=== PATIENT | male | born 1950 | race Caucasian/White ===

== ENCOUNTER → 2019-08-07 07:08 | Outpatient (CLI) | payer MEDICARE, SELFPAY ==
--- NOTE | ~2019-08-07 | MR_ITS ---
EXAMINATION: MR lumbar spine wo con DATE: 08/07/2019 07:50 INDICATION: Low back pain. TECHNIQUE: Magnetic resonance imaging (MRI) of the lumbar spine was performed without intravenous con trast. Sequences included sagittal T2-weighted FSE, sagittal T2-weighted FS FSE, sagittal T1-weighted FSE, and axial T2-weighted FSE. COMPARISON: Lumbar spine MRI 02/03/2016 FINDINGS: There is 5 degrees levocurvature of lumbar spine. There are chronic bilateral L5 pars defec ts. There is 12 mm anterolisthesis of L5 on S1. There is severely decreased disc height at L5-S1. The re is chronic 1/5 height loss of L5 inferior endplate and S1 superior endplate. There is moderately d ecreased disc height at T10-T11. The following disc levels are specifically discussed: T10-T11: There is a central extrusion. There is no facet joint osteoarthritis. There is mild bilatera l neural foraminal stenosis. There is moderate central canal stenosis with ventral indentation of the spinal cord. L1-L2: The disc does not extend beyond the endplate margin. There is mild bilateral facet joint osteo arthritis. There is no neural foraminal stenosis. There is no central canal stenosis. L2-L3: The disc does not extend beyond the endplate margin. There is mild bilateral facet joint osteo arthritis. There is no neural foraminal stenosis. There is no central canal stenosis. L3-L4: The disc is mildly bulging. There is moderate right and mild left facet joint osteoarthritis. There is mild bilateral neural foraminal stenosis. There is no central canal stenosis. L4-L5: The disc does not extend beyond the endplate margin. There is mild bilateral facet joint osteo arthritis. There is no neural foraminal stenosis. There is no central canal stenosis. L5-S1: The disc does not extend beyond the endplate margin. There is moderate bilateral facet joint o steoarthritis. There is moderate bilateral neural foraminal stenosis. There is no central canal steno sis. IMPRESSION: 1. Severe lower lumbar spondylosis and moderate lower thoracic spondylosis, stable from 02/03/2016. 2. Chronic bilateral L5 pars defects with stable grade 2 anterolisthesis of L5 on S1. Reviewed, dictated and finalized at location A. LESS STORE MANAGER IMPRESSION: 1. Severe lower lumbar spondylosis and moderate lower thoracic spondylosis, sta ble from 02/03/2016. 2. Chronic bilateral L5 pars defects with stable grade 2 anterolisthesis of L5 on S1.
== END ==
PROVIDERS: Visit Provider Anesthesiology Pain Medicine
DX: M47.896 Other spondylosis, lumbar region (principal)
CPT/HCPCS: 72148

== ENCOUNTER 2020-06-04 06:53 | Outpatient (NON) | payer MEDICARE, SELFPAY ==
[2020-06-05 13:43] LABS: SARS-CoV-2 RNA PCR Negative
== END 2020-06-04 06:54 ==
PROVIDERS: PCP Family Medicine; Visit Provider Physician Assistant Medical
DX: Z20.828 Contact with and (suspected) exposure to other viral communicable diseases (principal); R09.89 Other specified symptoms and signs involving the circulatory and respiratory systems
CPT/HCPCS: 87635; C9803; U0003

== ENCOUNTER 2020-09-17 10:03 | Outpatient (CLI) | payer MEDICARE, SELFPAY ==
--- NOTE | ~2020-09-17 | NM_ITS ---
EXAMINATION: NM petra stress w perfusion DATE: 09/17/2020 12:04 INDICATION: Chest pain. TECHNIQUE: Rest images were obtained following intravenous administration of 9.6 mCi Tc99m tetrofosmi n (Myoview). The patient was infused intravenously with Lexiscan (regadenoson). Then, 30.5 mCi Tc99m tetrofosmin (Myoview) was administered intravenously, and stress images were obtained. Data was recon structed into short axis and horizontal and vertical long axis SPECT images. Gated SPECT images were also obtained. COMPARISON: Myocardial perfusion imaging 08/21/2016 FINDINGS: There is no definite reversible or fixed perfusion abnormality to suggest ischemia or infar ction. There is no segmental wall motion abnormality. Left ventricular ejection fraction measures 6 9%. IMPRESSION: 1. No definite ischemia or infarct. 2. Normal left ventricular ejection fraction measuring 69%. Reviewed, dictated and finalized at location A. [employer]TY FORE[employer]OD
--- NOTE | 2020-09-17 10:18 | EST_ITS ---
Patient Info Name: Byron Desai Age: 70 years : 1950 Gender: Male Ht: 68 in Wt: 326 lbs BSA: 2.75 m2 Exam Date: 09/17/2020 11:10 AM Exam Location: [facility] Stress Patient Status: Outpatient Admit Date: 09/17/2020 Staff Ordering Physician: Elvira Montoya Attending Provider: Elvira Montoya Exercise Technologist: Dory Goodwin RDCS Exercise Physician: Ubaldo Noel DO Exam Type: CA stress petra w NM Study Info A regadenoson stress test was performed. Summary 1. 1. Negative lexiscan stress test for ischemic ST changes by ECG criteria. 2. 2. Stable hemodynamics throughout the test. 3. 3. Nuclear scan to follow and will be reported separately. Please correlate with it. 4. 4. Patient informed of the above results. Protocol: Lexiscan Stress ECG Details Stage: REST Duration (min): 5 min : 8 sec HR (bpm): 76 SBP (mmHg): 116 DBP (mmHg): 83 Stage: REST Duration (min): 8 min : 33 sec HR (bpm): 77 SBP (mmHg): 116 DBP (mmHg): 83 Stage: STAGE 1 Duration (min): 0 min : 59 sec HR (bpm): 77 SBP (mmHg): 136 DBP (mmHg): 83 Stage: RECOVERY Duration (min): 1 min : 0 sec HR (bpm): 93 SBP (mmHg): 100 DBP (mmHg): 70 Stage: RECOVERY Duration (min): 2 min : 0 sec HR (bpm): 90 SBP (mmHg): 100 DBP (mmHg): 70 Stage: RECOVERY Duration (min): 3 min : 0 sec HR (bpm): 86 SBP (mmHg): 109 DBP (mmHg): 74 Stage: RECOVERY Duration (min): 4 min : 0 sec HR (bpm): 93 SBP (mmHg): 109 DBP (mmHg): 74 Stage: RECOVERY Duration (min): 5 min : 0 sec HR (bpm): 91 SBP (mmHg): 112 DBP (mmHg): 74 Stage: RECOVERY Duration (min): 6 min : 0 sec HR (bpm): 91 SBP (mmHg): 112 DBP (mmHg): 74 Stage: RECOVERY Duration (min): 7 min : 0 sec HR (bpm): 89 SBP (mmHg): 113 DBP (mmHg): 78 Stage: RECOVERY Duration (min): 8 min : 0 sec HR (bpm): 87 SBP (mmHg): 113 DBP (mmHg): 78 Stage: RECOVERY Duration (min): 8 min : 43 sec HR (bpm): 87 SBP (mmHg): 129 DBP (mmHg): 81 Rest HR: 77 bpm Peak HR: 94 bpm Rest Sys BP: 116 mmHg Peak Sys BP: 136 mmHg Max Pred HR: 151 bpm % Max Pred HR: 62 % Target HR: 128 bpm Max RPP: 12,784 bpm*mmHg Termination Reason: Completed protocol Cardiac Symptoms: Shortness of breath Total Time: 1 min : 0 sec Rest Pate BP: 83 mmHg Peak Pate BP: 83 mmHg Total Dose: 0.4 mg Resting ECG Sinus rhythm. Stress ECG No ST changes. Arrhythmias None. Report Signatures
== END 2020-09-17 10:04 | disposition home or self-care (01) ==
PROVIDERS: PCP Family Medicine; Visit Provider Nurse Practitioner Family
DX: E66.01 Morbid (severe) obesity due to excess calories (principal); R07.89 Other chest pain; I10 Essential (primary) hypertension
CPT/HCPCS: 78452; 93017; A9502; J2785

== ENCOUNTER → 2021-01-26 17:32 | Outpatient (CLI) | payer MEDICARE, SELFPAY ==
--- NOTE | ~2021-01-26 | XR_ITS ---
EXAMINATION: XR knee LT 3V EXAM DATE: 01/26/2021 18:50 INDICATION: M25.562 - Pain in left knee TECHNIQUE: Three projections of the left knee. Frontal and lateral projections were obtained standing . Comparison is made to prior examination from 02/17/2018. FINDINGS: No evidence osteochondral defect or joint body in the left knee joint. There is moderate to severe primary osteoarthritis of the medial tibiofemoral compartment, mild to moderate the patell ofemoral compartment. No joint effusion. There are no acute fractures identified. The soft tissue is unremarkable. Compared to 2018, significant progression in arthritis. IMPRESSION: Moderate to severe left medial tibiofemoral compartment osteoarthritis. Reviewed, dictated and finalized at location G. IMPRESSION: Moderate to severe left medial tibiofemoral compartment osteoarthri tis.
== END ==
PROVIDERS: PCP Family Medicine; Visit Provider Nurse Practitioner Family
DX: M17.12 Unilateral primary osteoarthritis, left knee (principal)
CPT/HCPCS: 73562

== ENCOUNTER 2022-05-23 00:16 | Day surgery (SDC) | payer MEDICARE, SELFPAY ==
[2022-05-12 14:32] VITALS: BMI 43.4
[2022-05-23 06:43] VITALS: BP 135/85; PULSE 69; RESP 18; TEMP 35.5; O2SAT 97
[2022-05-23] MEDS: LACTATED RINGERS 1,000 ML 150 ML IV CONT (06:47)
--- NOTE | 2022-05-23 07:33 | WPDANESEPPF ---
Anes - Initial Pre Proc Eval Procedure: Operation Date: 05/23/22 08:00 Proposed Procedures p Screening Colonoscopy - Miguel Caraballo MD Date/Time: 05/23/22 07:33 Surgeon: Miguel Caraballo MD Pre Op Diagnosis: neoplasm screening Patient Data Age: 72 Gender: M Height: 1.73 m Weight: 125.8 kg Last Vital Signs Temp 95.9 F L 05/23/22 06:43 Pulse 69 05/23/22 06:43 Resp 18 05/23/22 06:43 BP 135/85 05/23/22 06:43 Pulse Ox 97 05/23/22 06:43 O2 Del Method Room Air 05/23/22 06:43 Allergies Allergy/AdvReac Type Severity Reaction Status Date / Time No Known Allergies Allergy Verified 05/23/22 06:42 Home Medications Medication Instructions Recorded Confirmed Type meloxicam 15 mg tablet 15 mg PO DAILY #90 tabs 03/10/22 05/23/22 Rx alprazolam 0.5 mg tablet 0.5 mg PO TID PRN anxiety 05/12/22 05/23/22 History escitalopram oxalate 20 mg tablet 20 mg PO DAILY 05/12/22 05/23/22 History levothyroxine 88 mcg tablet 88 mcg PO DAILY 05/12/22 05/23/22 History rosuvastatin 10 mg tablet 10 mg PO DAILY 05/12/22 05/23/22 History silver sulfadiazine 1 % topical 1 applic topical DAILY #20 grams 05/17/22 05/23/22 Rx cream (Silvadene) Patient hx anesthesia problems: none Family hx anesthesia problems: none Results Review: All pre-operative results and documents have been reviewed as part of the pre-operative evaluation. [facility] Past Medical History Medical History Anxiety disorder, unspecified Bilateral primary osteoarthritis of knee BMI 40.0-44.9, adult BMI 45.0-49.9, adult Bronchitis Diabetes Essential (primary) hypertension Hamstring tightness Hypothyroidism Lumbar disc disease with radiculopathy Mixed hyperlipidemia Moderate major depression Morbid obesity Neuropathy VIKI (obstructive sleep apnea) Skin tags, multiple acquired Spondylolysis, lumbar region Testicular hypofunction Type 2 diabetes mellitus without complication, without long-term current use of insulin Family History Family History Father Mother Other Diabetes mellitus Family history of cardiovascular disease Social History Social History Smoking status: Never smoker Second hand tobacco smoke exposure: No Alcohol intake: never Substance use: never Substance use type: does not use Living arrangements: with family 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 Gender identity (if verbalized by the patient): Male Sexual Orientation (if Verbalized by the Patient): Straight or Heterosexual Spiritual care concerns: No Agree to blood products: Yes Anes - Eval Final PreProcedure Day of Procedure 05/23/22 07:33 Patient weight: morbidly obese Heart: regular rate and rhythm Lungs: clear to auscultation Airway: Mallampati scale class II Neurological: alert and oriented Last oral intake: >/= 8 hours ASA classification: III Emergent: no Anesthetic plan: proceed Anesthesia type and monitoring: general GIVS and standard monitoring Results Review: All pre-operative results and documents have been reviewed as part of the pre-operative evaluation. Informed Consent: The patient's anesthetic plan and its attendant risks and benefits were discussed with the patient/family/POA. Questions were solicited and answers provided to the satisfaction of the patient/family/POA.
--- NOTE | 2022-05-23 07:47 | PM.HPGS ---
History of Present Illness History of Present Illness Consent: Risks, benefits, and alternatives have been discussed and questions answered. Patient agrees to proceed with procedure. Chief complaint: neoplasm screening Narrative: Byron Desai is a 72 year old male here for screening colonoscopy, last one 10 years ago Review of Systems Constitutional: Constitutional: Denies headache(s) and Denies weakness Eyes: Eyes: Denies blurry vision ENT: Reports Normal hearing present, Denies headache(s) and Denies neck pain Cardiovascular: Cardiovascular: Denies chest pain and Denies dyspnea Respiratory: Respiratory: Denies dyspnea Gastrointestinal: Gastrointestinal: Reports no additional gastrointestinal complaints Genitourinary: Genitourinary: Denies dysuria Musculoskeletal: Musculoskeletal: Denies neck pain Integumentary/Breasts: Skin/Breast: Denies dry skin Neurologic: Reports Normal hearing present, Denies headache(s) and Denies weakness Psychiatric: Psychiatric: Denies anxiety Endocrine: Endocrine: Denies change in body appearance Hematologic/Lymphatic: Hematologic/Lymphatic: Denies easy bleeding Allergic/Immunologic: Allergic/Immunologic: Denies urticaria PMFSH Past Medical History Medical History Anxiety disorder, unspecified Bilateral primary osteoarthritis of knee BMI 40.0-44.9, adult BMI 45.0-49.9, adult Bronchitis Diabetes Essential (primary) hypertension Hamstring tightness Hypothyroidism Lumbar disc disease with radiculopathy Mixed hyperlipidemia Moderate major depression Morbid obesity Neuropathy VIKI (obstructive sleep apnea) Skin tags, multiple acquired Spondylolysis, lumbar region Testicular hypofunction Type 2 diabetes mellitus without complication, without long-term current use of insulin Family History Family History Father Mother Other Diabetes mellitus Family history of cardiovascular disease Social History Social History Smoking status: Never smoker Second hand tobacco smoke exposure: No Alcohol intake: never Substance use: never Substance use type: does not use Living arrangements: with family 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 Gender identity (if verbalized by the patient): Male Sexual Orientation (if Verbalized by the Patient): Straight or Heterosexual Spiritual care concerns: No Agree to blood products: Yes Meds Home Medications and Allergies Home Medications Medication Instructions Recorded Confirmed Type meloxicam 15 mg tablet 15 mg PO DAILY #90 tabs 03/10/22 05/23/22 Rx alprazolam 0.5 mg tablet 0.5 mg PO TID PRN anxiety 05/12/22 05/23/22 History escitalopram oxalate 20 mg tablet 20 mg PO DAILY 05/12/22 05/23/22 History levothyroxine 88 mcg tablet 88 mcg PO DAILY 05/12/22 05/23/22 History rosuvastatin 10 mg tablet 10 mg PO DAILY 05/12/22 05/23/22 History silver sulfadiazine 1 % topical 1 applic topical DAILY #20 grams 05/17/22 05/23/22 Rx cream (Silvadene) Allergies Allergy/AdvReac Type Severity Reaction Status Date / Time No Known Allergies Allergy Verified 05/23/22 06:42 Vital Signs Vital Signs - 24 hr 05/23/22 06:43 Temperature 95.9 F L Pulse Rate 69 Respiratory Rate 18 Blood Pressure 135/85 Pulse Oximetry 97 Oxygen Delivery Room Air Exam Const: General: comfortable and no acute distress HENMT: Face/Nose/Sinus: Normal nares present Eyes: General: appearance normal, both eyes and all related structures Neck: Neck: no JVD Resp: Auscultation: clear to auscultation bilaterally Cardio: Rate: regular rate Rhythm: regular rhythm GI: Inspection: non-distended GI Palp: Yes Soft to palpation Skin: General skin exam: normal color Neuro: General:
[2022-05-23 08:08] VITALS: BP 109/66; PULSE 58; RESP 20; O2SAT 94
[2022-05-23 08:18] VITALS: BP 112/66; PULSE 56; RESP 19; O2SAT 95
[2022-05-23 08:28] VITALS: BP 113/78; PULSE 63; RESP 19; O2SAT 95
== END 2022-05-23 08:33 | disposition home or self-care (01) ==
PROVIDERS: PCP Family Medicine; Visit Provider Internal Medicine Gastroenterology
PROC: 0DJD8ZZ Inspection of Lower Intestinal Tract, Via Natural or Artificial Opening Endoscopic (ICD-10-PCS; CPT 45378; principal; 2022-05-23 08:00)
DX: Z12.11 Encounter for screening for malignant neoplasm of colon (principal); K57.30 Diverticulosis of large intestine without perforation or abscess without bleeding; K64.8 Other hemorrhoids; I10 Essential (primary) hypertension; E03.9 Hypothyroidism, unspecified; E78.2 Mixed hyperlipidemia; E11.40 Type 2 diabetes mellitus with diabetic neuropathy, unspecified; F32.1 Major depressive disorder, single episode, moderate; F41.9 Anxiety disorder, unspecified; E66.01 Morbid (severe) obesity due to excess calories; Z68.41 Body mass index [BMI] 40.0-44.9, adult; G47.33 Obstructive sleep apnea (adult) (pediatric)
CPT/HCPCS: G0121; J2704; J7120

== ENCOUNTER 2022-08-14 13:01 | Outpatient (CLI) | payer MEDICARE, SELFPAY ==
--- NOTE | ~2022-08-14 | MR_ITS ---
EXAMINATION: MR brain/brain stem wo/w con DATE: 08/14/2022 14:34 INDICATION: Memory loss. Personally change. Daily headache. TECHNIQUE: Magnetic resonance imaging (MRI) of the brain and brainstem was performed without and with 20 mL MultiHance intravenous contrast. COMPARISON: Brain MRI 03/16/2010 FINDINGS: There is a developmental venous anomaly in left frontal lobe. There is no intracranial hemo rrhage, acute infarction, or abnormal intracranial mass lesion. The ventricles are normal in size. Th e paranasal sinuses are clear. The mastoid air cells are normal. There are likely changes of right oc ular lens replacement surgery. IMPRESSION: 1. Normal brain. Reviewed, dictated and finalized at location A. NE WELDER IMPRESSION: 1. Normal brain.
== END 2022-08-14 13:02 | disposition home or self-care (01) ==
PROVIDERS: PCP Family Medicine; Visit Provider Physician Assistant Medical
DX: R41.3 Other amnesia (principal); R51.9 Headache, unspecified; F41.8 Other specified anxiety disorders
CPT/HCPCS: 70553; A9577

== ENCOUNTER 2023-02-20 15:32 | Outpatient (CLI) | payer MEDICARE, SELFPAY ==
--- NOTE | ~2023-02-20 | XR_ITS ---
EXAMINATION: XR_RIBSBICXR1_CR DATE: 02/20/2023 15:57 INDICATION: Unspecified fall, initial encounter. TECHNIQUE: An anteroposterior view of the chest, 2 views of the left ribs on 3 radiographs, and 2 vie ws of the right ribs on 3 radiographs were obtained. COMPARISON: Chest 2 views 08/13/2016, CT abdomen and pelvis 01/26/2016 FINDINGS: There is no pneumonia, pleural effusion, or pneumothorax. The heart size is normal. IMPRESSION: 1. No rib fracture. Reviewed, dictated and finalized at location A. IMPRESSION: 1. No rib fracture.
--- NOTE | ~2023-02-20 | XR_ITS ---
EXAM: XR knee RT min 4V DATE: 02/20/2023 15:57 HISTORY: W19.XXXA - Unspecified fall, initial encounter . COMPARISON: 02/17/2018. FINDINGS: Normal mineralization. No fracture or dislocation. No lytic or blastic lesion. Tricompartm ental right knee osteoarthritis, moderate in the medial compartment. Mild quadriceps enthesopathy. No erosion or periosteal change. Soft tissues within normal limits. IMPRESSION: No acute osseous finding in the right knee. Reviewed, dictated and finalized at location K.
== END 2023-02-20 15:33 | disposition home or self-care (01) ==
LOC: ANHIMG 15:33
PROVIDERS: PCP Family Medicine; Visit Provider Nurse Practitioner Family
DX: S29.9XXA Unspecified injury of thorax, initial encounter (principal); S89.91XA Unspecified injury of right lower leg, initial encounter
CPT/HCPCS: 71111; 73564

== ENCOUNTER 2023-02-24 12:45 | Emergency (ER) | payer MEDICARE, SELFPAY ==
--- NOTE | ~2023-02-24 | CT_ITS ---
EXAMINATION: CT brain wo con DATE: 02/24/2023 14:10 INDICATION: Head injury. Headache. TECHNIQUE: Computed tomography (CT) of the head was performed without intravenous contrast. The mA wa s adjusted according to patient size. Iterative reconstruction technique was employed. The dose-lengt h product was 605.33 mGy-cm. COMPARISON: Head CT 08/13/2016, brain MRI 08/14/2022 FINDINGS: There is no intracranial hemorrhage, acute infarction, or abnormal intracranial mass lesion . The ventricles are normal in size. There are likely changes of right ocular lens replacement surger y. There is mild mucosal thickening in the paranasal sinuses. The mastoid air cells are normal. IMPRESSION: 1. Normal brain. Reviewed, dictated and finalized at location A. IMPRESSION: 1. Normal brain.
--- NOTE | ~2023-02-24 | CT_ITS ---
EXAMINATION: CT cervical spine wo con DATE: 02/24/2023 14:10 INDICATION: Head injury. TECHNIQUE: Computed tomography (CT) of the cervical spine was performed without intravenous contrast. Automated exposure control and iterative reconstruction technique were employed. The dose-length pro duct was 513.21 mGy-cm. COMPARISON: None FINDINGS: There is 4 degrees dextrocurvature of cervical spine. There is kyphosis of cervical spine. There is 2 mm retrolisthesis of C5 on C6. Vertebral body heights are normal. There is severely decrea sed disc height from C4-C5 through C7-T1. The following disc levels are specifically discussed: C2-C3: There is moderate right and mild left uncovertebral joint osteoarthritis. There is severe bila teral facet joint osteoarthritis. There is mild bilateral neural foraminal stenosis. There is no cent ral canal stenosis. C3-C4: There is mild right and moderate left uncovertebral joint osteoarthritis. There is mild right and severe left facet joint osteoarthritis. There is moderate left neural foraminal stenosis. There i s no central canal stenosis. C4-C5: There is severe bilateral uncovertebral joint osteoarthritis. There is moderate right and mild left facet joint osteoarthritis. There is moderate bilateral neural foraminal stenosis. There is mil d central canal stenosis. C5-C6: There is severe bilateral uncovertebral joint osteoarthritis. There is mild right and mild lef t facet joint osteoarthritis. There is moderate bilateral neural foraminal stenosis. There is mild ce ntral canal stenosis. C6-C7: There is severe bilateral uncovertebral joint osteoarthritis. There is mild bilateral facet pedro luis int osteoarthritis. There is mild bilateral neural foraminal stenosis. There is mild central canal st enosis. C7-T1: There is mild bilateral uncovertebral joint osteoarthritis. There is severe bilateral facet pedro luis int osteoarthritis. There is moderate right and mild left neural foraminal stenosis. There is no cent ral canal stenosis. IMPRESSION: 1. No fracture. 2. Severe cervical spondylosis. Reviewed, dictated and finalized at location A.
[2023-02-24 12:46] VITALS: BP 111/96; PULSE 97; RESP 18; TEMP 36.8; O2SAT 98
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
[2023-02-24] MEDS: TETANUS,DIPHTHERIA,AC PERTUSSIS ADULT (0.5 ML) BOOSTRIX IM (13:50)
[2023-02-24 13:54] VITALS: BP 139/105; PULSE 77; RESP 16; O2SAT 99
[2023-02-24 15:37] VITALS: BP 121/66; PULSE 67; RESP 18; O2SAT 97
== END 2023-02-24 15:39 | disposition home or self-care (01) ==
PROVIDERS: Emergency Provider Emergency Medicine; PCP Family Medicine
DX: S01.01XA Laceration without foreign body of scalp, initial encounter (principal); Z23 Encounter for immunization; E11.9 Type 2 diabetes mellitus without complications; I10 Essential (primary) hypertension; E03.9 Hypothyroidism, unspecified; E78.2 Mixed hyperlipidemia; E66.01 Morbid (severe) obesity due to excess calories; Z68.41 Body mass index [BMI] 40.0-44.9, adult; G47.33 Obstructive sleep apnea (adult) (pediatric); M17.0 Bilateral primary osteoarthritis of knee; F41.9 Anxiety disorder, unspecified; F32.9 Major depressive disorder, single episode, unspecified; Z79.85 Long-term (current) use of injectable non-insulin antidiabetic drugs; M47.812 Spondylosis without myelopathy or radiculopathy, cervical region; V00.831A Fall from motorized mobility scooter, initial encounter
CPT/HCPCS: 12001; 70450; 72125; 90471; 90715; 99284

== ENCOUNTER 2023-05-03 09:20 | Outpatient (CLI) | payer MEDICARE, SELFPAY ==
--- NOTE | ~2023-05-03 | MR_ITS ---
EXAMINATION: MR thoracic spine wo con DATE: 05/03/2023 10:17 INDICATION: Pain in thoracic spine. TECHNIQUE: Magnetic resonance imaging (MRI) of the thoracic spine was performed without intravenous c ontrast. COMPARISON: None FINDINGS: Bone alignment is normal. There is severe cervical spondylosis. There is mildly decreased d isc height at T8-T9 and moderately decreased disc height at T10-T11. At T8-T9, there is a central ext rusion with mild central canal stenosis. At T10-T11, there is a central extrusion with severe central canal stenosis and ventral and dorsal indentation of the spinal cord. There is increased T2-weighted signal intensity in the spinal cord at T10-T11. There is multilevel mild to moderate facet joint ost eoarthritis. At T4-T5, there is severe bilateral facet joint osteoarthritis. On the right, there is m ild neural foraminal stenosis at T4-T5. On the left, there is mild neural foraminal stenosis at T4-T5 . The conus medullaris is at L1-L2. IMPRESSION: 1. 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 2. Mild spondylosis at other thoracic levels. Severe cervical spondylosis. Reviewed, dictated and finalized at location E.
--- NOTE | ~2023-05-03 | MR_ITS ---
EXAMINATION: MR lumbar spine wo con DATE: 05/03/2023 10:22 INDICATION: Other low back pain. TECHNIQUE: Magnetic resonance imaging (MRI) of the lumbar spine was performed without intravenous con trast. Sequences included sagittal T2-weighted FSE, sagittal T2-weighted FS FSE, sagittal T1-weighted FSE, and axial T2-weighted FSE. COMPARISON: Lumbar spine MRI 08/07/2019 FINDINGS: There are chronic bilateral L5 pars defects. There is 12 mm anterolisthesis of L5 on S1. Th ere is severely decreased disc height at L5-S1 with chronic 1/5 height loss of L5 and mild height los s of S1 segment. There is mildly decreased disc height at T10-T11. The following disc levels are spec ifically discussed: T10-T11: There is a central extrusion. There is mild bilateral facet joint osteoarthritis. There is n o neural foraminal stenosis. There is moderate central canal stenosis with ventral indentation of the spinal cord. L1-L2: The disc does not extend beyond the endplate margin. There is mild bilateral facet joint osteo arthritis. There is no neural foraminal stenosis. There is no central canal stenosis. L2-L3: The disc does not extend beyond the endplate margin. There is moderate right and mild left fac et joint osteoarthritis. There is no neural foraminal stenosis. There is no central canal stenosis. L3-L4: The disc is mildly bulging. There is moderate right and mild left facet joint osteoarthritis. There is mild bilateral neural foraminal stenosis. There is mild central canal stenosis. L4-L5: The disc does not extend beyond the endplate margin. There is mild bilateral facet joint osteo arthritis. There is no neural foraminal stenosis. There is no central canal stenosis. L5-S1: The disc does not extend beyond the endplate margin. There is mild bilateral facet joint osteo arthritis. There is moderate bilateral neural foraminal stenosis. There is no central canal stenosis. IMPRESSION: 1. Chronic bilateral L5 pars defects with grade 2 anterolisthesis of L5 on S1. 2. Moderate spondylosis at T10-T11 and severe spondylosis at L5-S1, stable from 08/07/2019. Reviewed, dictated and finalized at location E.
== END 2023-05-03 09:21 ==
PROVIDERS: PCP Family Medicine; Visit Provider Nurse Practitioner Family
DX: M51.24 Other intervertebral disc displacement, thoracic region (principal); M43.05 Spondylolysis, thoracolumbar region; M47.817 Spondylosis without myelopathy or radiculopathy, lumbosacral region; M43.04 Spondylolysis, thoracic region
CPT/HCPCS: 72146; 72148

== ENCOUNTER → 2023-05-28 10:57 | Outpatient (CLI) | payer MEDICARE, SELFPAY ==
--- NOTE | ~2023-05-28 | CT_ITS ---
EXAMINATION: CT lumbar spine wo con DATE: 05/28/2023 11:26 INDICATION: Intervertebral disc disorder with myelopathy. TECHNIQUE: Computed tomography (CT) of the lumbar spine was performed without intravenous contrast. A utomated exposure control and iterative reconstruction technique were employed. The dose-length produ ct was 888.10 mGy-cm. COMPARISON: Lumbar spine radiographs 05/28/2023 FINDINGS: There is 8 degrees levocurvature of lumbar spine. There are chronic bilateral L5 pars defec ts. There is 14 mm anterolisthesis of L5 on S1. There is mild chronic height loss of L5 vertebral bod y posteriorly. There is severely decreased disc height at L5-S1. The following disc levels are specif ically discussed: L1-L2: The disc does not extend beyond the endplate margin. There is moderate bilateral facet joint o steoarthritis. There is no neural foraminal stenosis. There is no central canal stenosis. L2-L3: The disc does not extend beyond the endplate margin. There is moderate right and mild left fac et joint osteoarthritis. There is no neural foraminal stenosis. There is no central canal stenosis. L3-L4: The disc is bulging. There is severe right and moderate left facet joint osteoarthritis. There is mild bilateral neural foraminal stenosis. There is mild central canal stenosis. L4-L5: The disc is bulging. There is moderate bilateral facet joint osteoarthritis. There is mild michael ateral neural foraminal stenosis. There is no central canal stenosis. L5-S1: The disc does not extend beyond the endplate margin. There is severe bilateral facet joint ost eoarthritis. There is severe bilateral neural foraminal stenosis. There is no central canal stenosis. IMPRESSION: 1. Severe lower lumbar spondylosis. 2. Chronic bilateral L5 pars defects with grade 2 anterolisthesis of L5 on S1. Reviewed, dictated and finalized at location E. INDERGARTEN TEACHER
--- NOTE | ~2023-05-28 | CT_ITS ---
EXAMINATION: CT thoracic spine wo con DATE: 05/28/2023 11:26 INDICATION: Intervertebral disc disorders with myelopathy. TECHNIQUE: Computed tomography (CT) of the thoracic spine was performed without intravenous contrast. Automated exposure control and iterative reconstruction technique were employed. The dose-length pro duct was 1066.16 mGy-cm. 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 There is 5 degrees dextrocurvature of thoracic spine. There is mild chronic anterior wedging of T6 vertebral body. There is mild to moderately decreased disc height at most levels in thoracic spin e, worst at T4-T5, T6-T7, and T8-T9. There is and T10-T11. At T10-T11, there is a large calcified fredo tral extrusion with severe central canal stenosis. There is mild central canal stenosis at T8-T9. The re is multilevel facet joint osteoarthritis, severe on the right at T4-T5 and T5-T6 and severe on the left at T4-T5. There is multilevel mild neural foraminal stenosis bilaterally in thoracic spine. IMPRESSION: 1. Severe spondylosis at T10-T11 and mild to moderate spondylosis at other levels. Reviewed, dictated and finalized at location E. Y LEVEL ACCOUNT EXECUTIVE IMPRESSION: 1. Severe spondylosis at T10-T11 and mild to moderate spondylosis at other leve ls.
--- NOTE | ~2023-05-28 | XR_ITS ---
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 There is complete l oss of disc space at this level. Vertebral body heights are maintained. There is mild facet hypertrop hy at L4-5. Sacral foramen are symmetric. Impression: 1: Moderate lumbar spondylosis at L5-S1 with grade 2 spondylolisthesis. Reviewed, dictated and finalized at location B. LUMIN METALWORKER Impression: 1: Moderate lumbar spondylosis at L5-S1 with grade 2 spondylolisthesis.
== END ==
PROVIDERS: PCP Neurological Surgery; Visit Provider Neurological Surgery
DX: M43.16 Spondylolisthesis, lumbar region (principal); M54.16 Radiculopathy, lumbar region; M51.04 Intervertebral disc disorders with myelopathy, thoracic region; M43.04 Spondylolysis, thoracic region; M53.86 Other specified dorsopathies, lumbar region
CPT/HCPCS: 72110; 72128; 72131

== ENCOUNTER → 2023-05-28 11:30 | Outpatient (CLI) | payer MEDICARE, SELFPAY ==
--- NOTE | ~2023-05-28 | XR_ITS ---
EXAMINATION: XR foot RT 2V, XR foot LT 2V DATE: 05/28/2023 12:11 INDICATION: Bilateral foot pain TECHNIQUE: 1. Dorsoplantar and lateral views of the left foot were obtained. 2. Dorsoplantar and lateral views of the right foot were obtained. COMPARISON: None. FINDINGS: Suggestion of mild left and minimal right pes planus however this would be more definitively assessed with weightbearing imaging. Otherwise normal alignment at both feet. No fractures. Relatively symmet martinez pattern of severe osteoarthritis at the bilateral first tarsal metatarsal joints. Additional poly articular osteoarthritis, moderate severity at the left and mild at the bilateral first metatarsophal angeal and multiple additional bilateral tarsometatarsal joints second tarsal metatarsal and interpha langeal joints. Small left and moderate-sized right plantar calcaneal spurs. Lesser calcification ant eriorly and posteriorly at the bilateral ankles. IMPRESSION: 1. 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 Reviewed, dictated and finalized at location A. SETTER HAND IMPRESSION: 1. Relatively symmetric pattern of polyarticular osteoarthritis in the bilatera l mid and forefeet, severe at the bilateral first tarsal metatarsal joints.
== END ==
PROVIDERS: PCP Family Medicine; Visit Provider Family Medicine
DX: M79.673 Pain in unspecified foot (principal); M19.072 Primary osteoarthritis, left ankle and foot; M19.071 Primary osteoarthritis, right ankle and foot
CPT/HCPCS: 73620